=== PATIENT | female | born 1990 ===

== ENCOUNTER 2017-12-22 16:37 | Emergency (ER) | payer BC, OTHER ==
[2017-12-22 16:53] VITALS: BP 131/82; PULSE 96; RESP 16; TEMP 97.8; O2SAT 98
[2017-12-22] MEDS ORDERED: Tdap Vaccine 0.5 ml Vial (10-64 yrs) IM ONE ×2 (17:58→19:00)
[2017-12-22] MEDS ORDERED: Hydrogen Peroxide 3% Soln (480ml) TP ONE (18:04)
--- NOTE | 2017-12-22 18:09 | ED PDOC ---
HPI: Wound Care - HPI Time Seen by Provider: 12/22/17 16:58 Chief Complaint (Nursing): Abnormal Skin Integrity Chief Complaint (Provider): Laceration History Per: Patient Exam Limitations: no limitations Onset/Duration Of Symptoms: Days (x1) Current Symptoms Are (Timing): Still Present Additional Complaint(s): Patient is a 27 y/o female who presents to the ED for evaluation of lacerations to her 2nd and 3rd left fingers, sustained today. 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 Other staff at her work cleaned the area with alcohol and applied an unknown paste. Last tetanus booster was 9 years ago. Patient denies taking any medications for pain prior to arrival. Otherwise: (-) changes in sensation, (-) weakness, (-) fever. PMD: none Past Medical History Reviewed: Historical Data, Nursing Documentation, Vital Signs Vital Signs: Last Vital Signs Temp 97.8 F 12/22/17 16:50 Pulse 96 H 12/22/17 16:50 Resp 16 12/22/17 16:50 BP 131/82 12/22/17 16:50 Pulse Ox 98 12/22/17 16:50 - Medical History PMH: No Chronic Diseases - Surgical History Surgical History: No Surg Hx Denies: Pacemaker - Family History Family History: States: Unknown Family Hx - Social History Current smoker - smoking cessation education provided: No Alcohol: Social Drugs: Denies - Home Medications Home Medications: Ambulatory Orders Medication Instructions Recorded Pantoprazole [Protonix EC Tab] 40 mg PO DAILY 04/25/15 - Allergies Allergies/Adverse Reactions: Allergies Allergy/AdvReac Type Severity Reaction Status Date / Time peanut Allergy Severe SHORTNESS Verified 12/22/17 16:50 OF BREATH Review of Systems ROS Statement: Except As Marked, All Systems Reviewed And Found Negative Constitutional: Negative for: Fever Skin: Positive for: Lesions (to left 2nd and 3rd digits) Neurological: Negative for: Weakness, Numbness Physical Exam - Reviewed Nursing Documentation Reviewed: Yes Vital Signs Reviewed: Yes - Physical Exam Comments: GENERAL APPEARANCE: Patient is awake, alert, oriented x 3, in no acute distress. SKIN: Warm, dry; (-) cyanosis. NECK: Supple RESPIRATORY: lungs clear to auscultation bilaterally with equal breath sounds. CARDIAC: (-) murmur EXTREMITY: Left hand: 1 cm u-shaped abrasion noted to dorsum of left 2nd digit, distal phalanx lateral and just proximal to the nail; 0.5 cm linear, horizontal abrasion to the radial aspect of left 3rd digit, distal phalanx. (-) Nail involvement; (-) ecchymosis; (-) surrounding erythema (-) active bleeding. Full ROM of digits. (+) Minimal tenderness to distal phalanx of left 3rd digit. (+) normal capillary refill. NEUROLOGIC: (+) distal sensation. - ECG O2 Sat by Pulse Oximetry: 98 (RA) Pulse Ox Interpretation: Normal Procedure: Wound Repair - Time Performed Time Performed: 18:45 - Time Out Time Out: Side verified, Site verified, Patient ID confirmed, Sterile procedures obs. - Procedure Procedure: Wound Repair: Laceration repair - Consent Obtained Consent obtained: Verbal - Performed by Performed by: Mid-level Provider - Indications Indication(s):: Laceration - Location Location:: Left Finger:: Index, Middle Shape:: Curvilinear - Debris Debris:: None - Complexity Complexity:: Simple (one layer) - Wound repair method Elvis:: Tissue glue - Patient tolerated procedure Patient Tolerated Procedure:: Well Medical Decision Making Medical Decision Making: Initial Impression: Finger laceration Time: 17:58 Initial Plan: * Tetanus booster given in ED * Tylenol 650 mg PO 1830 Dermabond applied to 2nd and 3rd digits to aid wound closure (see procedure note ). Patient educated on wound care. 1904 On exam, patient remains AAOx3, in no acute distress. On exam, neck is supple, lungs CTA, cardiac RRR, neuro exam shows no focal findings. VSS. Arrangements made for discharge. All questions answered. Advised to follow up with primary care physician in 1-2 days without fail. Advised to take NSAIDS as needed for pain. Return to the emergency room at any time for any new or worsening symptoms. Patient states she fully agrees with and understands discharge instructions. States that she agrees with the plan and disposition. Verbalized and repeated discharge instructions and plan. I have given the patient opportunity to ask any additional questions. Scribe Attestation: Documented by Sasha Valladares, acting as a scribe for Paige Lopes PA-C Provider Scribe Attestation: All medical record entries made by the Scribe were at my direction and personally dictated by me. I have reviewed the chart and agree that the record accurately reflects my personal performance of the history, physical exam, medical decision making, and the department course for this patient. I have also personally directed, reviewed, and agree with the discharge instructions and disposition. Disposition - Clinical Impression Clinical Impression: Finger laceration - Patient ED Disposition Is Patient to be Admitted: No Counseled Patient/Family Regarding: Diagnosis, Need For Followup - Disposition Referrals: [facility] [Outside] Disposition: Routine/Home Disposition Time: 19:18 Condition: STABLE Additional Instructions: USE TYLENOL OR IBUPROFEN NEEDED FOR PAIN RETURN TO ED WITH ANY WORSENING SYMPTOMS, INCLUDING INCREASED PAIN, REDNESS, SWELLING, PUS DRAINAGE, OR FEVER. KEEP WOUND CLEAN AND DRY. Instructions: Laceration Repair With Glue (DC) Forms: [employer] (Yoruba) Print Language: MAORI - POA Present On Arrival: None
== END 2017-12-22 19:50 | disposition home or self-care (01) ==
LOC: H.ER 16:37
DX: S61.219A Laceration without foreign body of unspecified finger without damage to nail, initial encounter (principal); W26.0XXA Contact with knife, initial encounter; Y99.0 Civilian activity done for income or pay